=== PATIENT | male | born 2000 | race Hispanic/Latino ===

== ENCOUNTER 2022-05-16 21:26 | Emergency (ER) | payer MEDICAID ==
[~2022-05-16] VITALS: Ht 160 cm; Wt 135.2 kg
[2022-05-16] MEDS ORDERED: ACETAMINOPHEN 500 MG TABLET PO ONE (23:00)
[2022-05-16] MEDS ORDERED: IBUPROFEN 600 MG TABLET PO ONE (23:00)
[2022-05-16] MEDS ORDERED: 0.9%NACL 1000ML 2,000 ML IV ONE (23:30)
[2022-05-17] MEDS ORDERED: ALBU90AE2 IH (00:01)
[2022-05-17] MEDS ORDERED: MOLN200C PO (00:01)
[2022-05-17] MEDS ORDERED: BENZ200C53 PO (00:01)
[2022-05-17 00:55] VITALS: BP 118/65
== END 2022-05-17 00:56 | disposition home or self-care (01) ==
LOC: EDH 21:26
DX: U07.1 COVID-19 (principal); B34.9 Viral infection, unspecified; F32.A Depression, unspecified; E11.9 Type 2 diabetes mellitus without complications; E78.00 Pure hypercholesterolemia, unspecified; I10 Essential (primary) hypertension; Z79.1 Long term (current) use of non-steroidal anti-inflammatories (NSAID)
CPT/HCPCS: 99283; 87635; 87880; 87804 ×2; C9803; J7030

== ENCOUNTER → 2023-01-29 | Outpatient (CLI) | payer MEDICAID ==
[~2023-01-29] MED LIST: ALBU90AE2 IH; BENZ200C53 PO; MOLN200C PO
== END | disposition home or self-care (01) ==
LOC: SHCH 08:31
PROVIDERS: ATTEND Internal Medicine Cardiovascular Disease
DX: R00.2 Palpitations (principal); R07.9 Chest pain, unspecified; I10 Essential (primary) hypertension; E11.9 Type 2 diabetes mellitus without complications; E78.5 Hyperlipidemia, unspecified
CPT/HCPCS: 93306

== ENCOUNTER 2025-04-07 00:46 | Emergency (ER) | payer BC, MEDICAID ==
[~2025-04-07] VITALS: Ht 162.6 cm; Wt 134.7 kg
[2025-04-07 01:48] LABS: IMMATURE GRANULOCYTE ABSOLUTE 0.03 K/uL (0-1); NUCLEATED RED BLOOD CELLS 0.0 % (0.0-0.19); PLATELET COUNT (AUTO) 258 K/uL (130-400); RED BLOOD CELL COUNT(AUTO) 5.40 MIL/uL (4.50-6.20); RED CELL DISTRIBUTION WIDTH 12.2 % (11.0-15.5); WHITE BLOOD COUNT (AUTO) 9.9 K/uL (4.8-10.8)
[2025-04-07 01:55] LABS: CREATININE 0.8 mg/dL (0.5-1.3); GLOMERULAR FILTR. RATE CALC 128.0 mL/min (>90); GLUCOSE,RANDOM 123.0 mg/dL (70-105); SODIUM SERUM 138.0 mmol/L (136-145); UREA NITROGEN, BLOOD 9.0 mg/dL (7-18)
--- NOTE | 2025-04-07 02:33 | ERN ---
General Chief Complaint: Headache Stated Complaint: C/O HEADACHE ONSET YESTERDAY Time Seen by MD: 00:59 Time Seen by Midlevel: 00:59 Source: patient History of Present Illness Initial Comments Patient is a 24-year-old male presenting to the emergency department for evaluation of a headache that started yesterday. He also reports chest tightness. Allergies: Coded Allergies: No Known Allergies (Unverified Allergy, Unknown, 05/16/22) Home Meds Active Scripts Ketorolac Tromethamine (Ketorolac Tromethamine) 10 Mg Tablet, 1 TAB PO BID for pain for 5 Days, #10 TAB 0 Refills Prov:ANA LAURA PATEL PAC 04/07/25 Albuterol Sulfate (Proair Digihaler) 90 Mcg Aer.pw.bas, 2 INH IH TID, #1 INHALER Prov:MONISHA SRINIVASAN V [facility] 05/17/22 Molnupiravir (Molnupiravir (Eua)) 200 Mg Capsule, 200 MG PO BID for 5 Days, #40 CAP Take 4 capsules every 12 hours for 5 days. Prov:MONISHA SRINIVASANP 05/17/22 Benzonatate (Benzonatate) 200 Mg Capsule, 200 MG PO TID PRN for COUGH for 14 Days, #42 CAP Prov:MONISHA SRINIVASAN V [facility] 05/17/22 Past Medical History Past Medical History: Diabetes-Type II, High Cholesterol, Hypertension, Other Medical History Other: AUTISM Past Surgical History: Unknown ROS Dictation CONSTITUTIONAL: Negative except for HPI HEAD/FACE: Negative except for HPI EENT: Negative except for HPI RESPIRATORY: Negative except for HPI GASTROINTESTINAL/ABDOMINAL: Negative except for HPI GENITOURINARY: Negative except for HPI MUSCULOSKELETAL: Negative except for HPI INTEGUMENTARY: Negative except for HPI NEUROLOGICAL/PSYCH: Negative except for HPI HEMATOLOGIC/LYMPHATIC: Negative except for HPI All Systems Negative, Except as noted above. 13 point review of systems assessed and all negative except for above. Physical Exam Physical Exam Dictation Vital Signs reviewed General Appearance: Alert, oriented x 3, no acute distress, well developed, nourished. Head and Face: non-traumatic. Eyes: PERRL, pink conjunctivas, eyelid no trauma, anterior chamber with arcus senilis. Ears: Pinnas intact and no signs of trauma or erythema ear canals clear and no discharge TM no erythema Nose: No discharge, no bleeding. Oropharynx: Mouth normal, tongue pink, pharynx clear,no erythema, tonsils no exudates, no abscesses noted, mucous membrane moist Neck: Supple, non-tender, no thyromegaly, no masses, no JVD, no bruits Breast:Deferred Chest:No tenderness, no crepitus, no paradoxical movement, no retractions Lungs:Clear, well-ventilated, symmetric, no rales, no wheezing, no rhonchi, no stridor, good breath sounds bilaterally Heart: Regular rate, regular rhythm, no murmur, no gallops Vascular: no peripheral edema, Abdomen: Soft, positive bowel sounds, nondistended, no guarding, nontender, no rebound, no masses no hepatomegaly, no splenomegaly, no Herrera's sign, no hernias. Rectal: Deferred Genital: Deferred Neurological: Normal speech, motor function intact, sensory function intact Musculoskeletal: Neck nontender, full range of motion, back nontender, full range of motion, Extremities: nontender, full range of motion Skin: Color pink, dry, no turgor, no rash, no lacerations, no abrasions, no contusions. Lymphatic: Deferred Results Laboratory and Microbiology Lab and Micro Result Laboratory Tests Test 04/07/25 01:42 White Blood Count 9.9 K/uL (4.8-10.8) Red Blood Count 5.40 MIL/uL (4.50-6.20) Hemoglobin 17.2 g/dL (14.0-18.0) Hematocrit 47.9 % (42-54) Mean Corpuscular Volume 88.7 fL (79-99) Mean Corpuscular Hemoglobin 31.9 pg (27.0-33.0) Mean Corpuscular Hemoglobin Concent 35.9 g/dL (32.0-36.0) Red Cell Distribution Width 12.2 % (11.0-15.5) Platelet Count 258 K/uL (130-400) Mean Platelet Volume 10.2 fL (7.5-10.5) Immature Granulocyte % (Auto) 0.3 % (0-1) Neutrophils (%) (Auto) 69.9 % (40.0-77.0) Lymphocytes (%) (Auto) 23.6 % (21.0-51.0) Monocytes (%) (Auto) 5.4 % (3.0-13.0) Eosinophils (%) (Auto) 0.5 % (0.0-8.0) Basophils (%) (Auto) 0.3 % (0.0-5.0) Neutrophils # (Auto) 6.9 K/uL (1.8-7.7) Lymphocytes # (Auto) 2.3 K/uL (1.0-4.8) Monocytes # (Auto) 0.5 K/uL (0.1-1.0) Eosinophils # (Auto) 0.05 K/uL (0.00-0.70) Basophils # (Auto) 0.03 K/uL (0.00-0.20) Absolute Immature Granulocyte (auto 0.03 K/uL (0-1) Nucleated Red Blood Cells 0.0 % (0.0-0.19) Sodium Level 138 mmol/L (136-145) Potassium Level 3.5 mmol/L (3.5-5.1) Chloride Level 102 mmol/L (101-111) Carbon Dioxide Level 24 mmol/L (21-32) Blood Urea Nitrogen 9 mg/dL (7-18) Creatinine 0.8 mg/dL (0.5-1.3) Glomerular Filtration Rate Calc 128 mL/min (>90) Random Glucose 123 mg/dL (70-105) H Total Calcium 8.5 mg/dL (8.5-10.1) Magnesium Level 2.00 mg/dL (1.80-2.40) Troponin I High Sensitivity < 4 ng/L (4-75) L Labs Reviewed?: Yes MDM MDM: Differential diagnosis: Tension headache, migraine headache, dehydration There are no social concerns with this patient. Prescription drug management Prescriptions will include: Toradol Medical management and examination interpretation discussions were had by me with other qualified healthcare professionals as indicated for the patient's care. ED Course Orders Procedure Category Date Status Time 12 Lead Ekg Tracing- EKG 04/07/25 Resulted Technical :28 Cbc With Differential LAB 04/07/25 Complete :28 Basic Metabolic Panel LAB 04/07/25 Complete :28 Troponin I High LAB 04/07/25 Complete Sensitivity 01:28 Chest 1vw RAD 04/07/25 Resulted 01:28 Magnesium LAB 04/07/25 Complete :28 Ketorolac PHA 12/10/25 Complete Tromethamine 15mg/Ml 01:30 Current Medications Medications (Trade) Dose Ordered Sig/Tim Route PRN Reason Start Time Stop Time Status Last Admin Dose Admin Ketorolac Tromethamine (toRADol) 15 mg ONCE ONCE IV 04/07/25 01:30 04/07/25 01:34 DC 04/07/25 01:45 Vital Signs Date Time Temp Pulse Resp B/P (MAP) Pulse Ox O2 Delivery O2 Flow Rate FiO2 04/07/25 03:04 98.8 90 18 135/65 98 Room Air* 0 21 04/07/25 01:02 98.8 99 18 151/64 99 Room Air* 0 21 04/07/25 00:48 97.9 97 20 136/67 96 Room Air DX & DISP Disposition: Discharge Departure Impression: Primary Impression: Tension headache Condition: Stable Scripts Ketorolac Tromethamine (Ketorolac Tromethamine) 10 Mg Tablet 1 TAB PO BID for pain for 5 Days, #10 TAB 0 Refills Prov: ANA LAURA PATEL PAC 04/07/25 Additional Instructions: Your blood work today is unremarkable. Your white blood cell count is normal which rules out a systemic infection. You are not anemic. Your electrolytes are normal. Your kidney function is normal. Your heart tests are normal. Your chest x-ray is normal. Your headache may be related to a tension headache. I have given you a prescription for ketorolac which should help improve your symptoms over the next couple of days. Follow up with your primary care doctor. Referrals: NONE (PCP) Time of Disposition: 02:31 I have reviewed the case, and I agree with, Diagnosis and Plan I performed the substantive portion of the visit. I have reviewed and personally made and approve the management plan that is documented in the note by myself or the GUERO. I acknowledge for responsibility for the patient's management plan. ANA LAURA PATEL PAC Apr 07, 2025 02:33
--- NOTE | 2025-04-07 02:47 | HMCIMG ---
EXAM: CR Chest, 1 View. CLINICAL HISTORY: sob COMPARISON: None provided. FINDINGS: LUNGS: There is no mass, infiltrate, or acute pulmonary abnormality. PLEURAL SPACES: No evidence of pleural effusion or pneumothorax. MEDIASTINUM: The cardiomediastinal silhouette is within normal limits. BONES: No aggressive appearing osseous lesion seen. IMPRESSION: No acute cardiopulmonary pathology is evident. /Baggs
[2025-04-07 03:04] VITALS: BP 135/65; PULSE 90; RESP 18; TEMP 98.8; O2SAT 98
--- NOTE | 2025-04-07 09:32 | EKG ---
[facility] Test Date: 2025-04-07 Test Time: 01:35:17 Pat Name: DEBBI ALVAREZ Department: [facility] Room: Gender: M Customer Response Representative: [phone] : 2000 Requested By: ANA LAURA PATEL Order Number: [id number] Reading MD: Keiry Gibson Measurements Intervals [place] Rate: 84 P: 15 MD: 172 QRS: 9 QRSD: 90 T: 19 QT: 364 QTc: 430 Interpretive Statements Sinus rhythm No previous ECG available for comparison Electronically Signed On 04-07-2025 10:05:26 ACID TENDER by Keiry Gibson Please click the below link to view image of tracing.
== END 2025-04-07 03:06 | disposition home or self-care (01) ==
LOC: EDH 00:46
DX: G44.209 Tension-type headache, unspecified, not intractable (principal); E11.9 Type 2 diabetes mellitus without complications; E78.00 Pure hypercholesterolemia, unspecified; F84.0 Autistic disorder; I10 Essential (primary) hypertension
CPT/HCPCS: 99284; 96374; 71045; 83735; 84484; 80048; 85025; 36415; 93005; J1885